=== PATIENT | female | born 1960 | race Caucasian/White ===

== ENCOUNTER → 2018-07-27 | Outpatient (CLI) | payer BC ==
[~2018-07-27] MED LIST: METHOTREXA2.5 MG/TAB PO; TYLENOL 325MG325 MG PO; [UNRECOGNIZED DRUG - REMARK] PO
== END ==
LOC: MC.RAD 09:19
DX: Z12.31 Encounter for screening mammogram for malignant neoplasm of breast (principal)

== ENCOUNTER → 2019-08-02 | Outpatient (CLI) | payer BC | LOC: MC.RAD 07:56 | DX: Z12.31 Encounter for screening mammogram for malignant neoplasm of breast (principal) ==

== ENCOUNTER → 2022-01-15 | Outpatient (CLI) | payer BC | LOC: MC.RAD 07:58 | DX: Z12.31 Encounter for screening mammogram for malignant neoplasm of breast (principal) ==

== ENCOUNTER → 2024-02-24 | Outpatient (CLI) | payer BC ==
[2005-11-26 13:15] VITALS: TEMP 98.1
== END ==
LOC: MC.RAD 08:01
DX: Z12.31 Encounter for screening mammogram for malignant neoplasm of breast (principal)